=== PATIENT | female | born 1960 | race African-American/Black ===

== ENCOUNTER → 2017-10-28 | Outpatient (CLI) | payer MEDICARE, MEDICAID ==
[~2017-10-28] MED LIST: CYCL-108; DICL75TA5; VICODIN
== END | disposition home or self-care (01) ==
LOC: MAMMO 10:37
PROVIDERS: ATTEND Specialist
DX: N64.52 Nipple discharge (principal); M85.88 Other specified disorders of bone density and structure, other site
CPT/HCPCS: 76641; 77066; 77080